=== PATIENT | female | born 1995 | race Caucasian/White ===

== ENCOUNTER 2017-04-30 16:04 | Emergency (ER) | payer SELFPAY ==
[~2017-04-30] VITALS: Ht 157.5 cm; Wt 65.0 kg
[2017-04-30 16:07] VITALS: Ht 157.5 cm; Wt 65.0 kg
[2017-04-30] MEDS ORDERED: HYDROCODONE/APAP (5/325) TAB PO ONE (17:30)
[2017-04-30] MEDS ORDERED: BACITRACIN 0.9 GM OINT TOP ONE (17:30)
--- NOTE | 2017-04-30 18:21 | RADRPT ---
PROCEDURE: Chest x-ray CLINICAL INDICATION: Chest pain TECHNIQUE: Chest single view COMPARISON: None FINDINGS: The heart is normal in size. The pulmonary vessels are normal in caliber. The lungs are clear. Th e costophrenic angles are sharp. The visualized bony thorax is unremarkable. No obvious rib fractur e identified IMPRESSION: No acute cardiopulmonary disease. No evidence of pneumothorax RPTAT: HH .Clark Moyer MD, MD Date Time Electronically viewed and signed by .Clark Moyer MD, on 04/30/2017 18:21 .W/
[2017-04-30] MEDS ORDERED: NAPR-260 PO (18:26)
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
[2017-04-30] MEDS ORDERED: CYCL-319 PO (18:27)
[2017-04-30] MEDS ORDERED: NEOM1PAC TP (18:28)
== END 2017-04-30 18:38 | disposition home or self-care (01) ==
LOC: FTE 16:04
DX: S50.12XA Contusion of left forearm, initial encounter (principal); S29.9XXA Unspecified injury of thorax, initial encounter; S50.812A Abrasion of left forearm, initial encounter; V49.40XA Driver injured in collision with unspecified motor vehicles in traffic accident, initial encounter
CPT/HCPCS: 71010